=== PATIENT | male | born 1995 | race Two or more races ===

== ENCOUNTER 2016-10-21 12:53 | Emergency (ER) | payer OTHER ==
[~2016-10-21] VITALS: Ht 172.7 cm; Wt 75.0 kg
[~2016-10-21 12:53] MED LIST: NOCURR
[2016-10-21] MEDS: IBUPROFEN 800 MG TABLET PO ONE (13:18)
[2016-10-21] MEDS: LIDOCAINE HCL BUFFERED 1% 20 ML VIAL INJ ONE (13:18)
[2016-10-21] MEDS: CeFAZolin 1 GM/DEXTROSE 50 ML IV ONE (15:26)
[2016-10-21 16:10] VITALS: BP 126/78
== END 2016-10-21 16:41 | disposition home or self-care (01) ==
LOC: EMS 12:55
DX: S51.811A Laceration without foreign body of right forearm, initial encounter (principal); F17.210 Nicotine dependence, cigarettes, uncomplicated; W25.XXXA Contact with sharp glass, initial encounter; Y93.89 Activity, other specified; Y92.89 Other specified places as the place of occurrence of the external cause; Y99.8 Other external cause status
CPT/HCPCS: 12004; 12034; 73090; 96365; 99284; J0690; J3490; 12005